=== PATIENT | male | born 1960 | race African-American/Black ===

== ENCOUNTER 2016-11-03 17:21 | Emergency (ER) | payer SELFPAY ==
[~2016-11-03] VITALS: Ht 172.7 cm; Wt 90.7 kg
[2016-11-03 20:19] VITALS: BP 121/73
== END 2016-11-03 20:19 | disposition home or self-care (01) ==
LOC: ED 17:21
DX: S05.01XA Injury of conjunctiva and corneal abrasion without foreign body, right eye, initial encounter (principal); S51.812D Laceration without foreign body of left forearm, subsequent encounter; X58.XXXA Exposure to other specified factors, initial encounter; Y99.8 Other external cause status; Y93.89 Activity, other specified; Y92.89 Other specified places as the place of occurrence of the external cause; X58.XXXD Exposure to other specified factors, subsequent encounter
CPT/HCPCS: 90715; J1885